=== PATIENT | male | born 1980 | race Caucasian/White ===

== ENCOUNTER 2024-06-19 10:49 | Outpatient (CLI) | payer BC, SELFPAY ==
--- NOTE | ~2024-06-19 | CT_ITS ---
CT abdomen pelvis wo con Ordering provider: Kel Jasso MD History: 43 years Male with . RIGHT URETERAL STONE . Comparison: None. Technique: CT abdomen and pelvis without IV and without oral contrast. Automated exposure control and iterative reconstruction technique were employed. The dose-length product was 216.02 mGy-cm. Findings: VISUALIZED LOWER CHEST: Dependent atelectatic changes. UPPER ABDOMINAL ORGANS: Liver: Normal. Gallbladder: Normal. Spleen: Normal. Stomach/duodenum: Normal. Pancreas: Normal. Adrenals: Normal. Kidneys: Bilateral lower pole kidney stones. 2 stones in the right kidney with the largest measuring 4 mm. The left kidney stone is measuring 7 mm. PELVIC ORGANS: The bladder is underfilled. BOWEL AND MESENTERY: Colon: No evidence of diverticulitis. No evidence of appendicitis. Small Bowel: Normal. No obstruction. Peritoneum/mesentery: No free air or free fluid. No mesenteric lymphadenopathy. RETROPERITONEUM: Normal aorta. No retroperitoneal lymphadenopathy. MUSCULOSKELETAL: Superficial soft tissues: The superficial soft tissues are normal. Bones: Age appropriate degenerative changes of the spine. IMPRESSION: 1. Bilateral kidney stones with no evidence of ureteric stones. No hydronephrotic changes. Reviewed, dictated and finalized at location A. IMPRESSION: 1. Bilateral kidney stones with no evidence of ureteric stones. No hydronephro tic changes.
== END 2024-06-19 10:50 | disposition home or self-care (01) ==
PROVIDERS: Visit Provider Urology
DX: N20.0 Calculus of kidney (principal)
CPT/HCPCS: 74176